=== PATIENT | male | born 1995 | race African-American/Black ===

== ENCOUNTER 2018-12-25 00:48 | Emergency (ER) | payer MEDICAID ==
[~2018-12-25] VITALS: Ht 167.6 cm; Wt 67.7 kg
[~2018-12-25 00:48] MED LIST: DEXT30CA6 PO
[2018-12-25 01:26] VITALS: BP 151/109
[2018-12-25] MEDS ORDERED: AMPH30CA6 PO (02:39)
== END 2018-12-25 02:49 | disposition home or self-care (01) ==
LOC: ER 00:49
DX: F90.9 Attention-deficit hyperactivity disorder, unspecified type (principal); G47.419 Narcolepsy without cataplexy; J45.909 Unspecified asthma, uncomplicated; Z76.0 Encounter for issue of repeat prescription; Z79.899 Other long term (current) drug therapy
CPT/HCPCS: 99283